=== PATIENT | male | born 1960 | race Caucasian/White ===

== ENCOUNTER 2020-06-16 16:43 | Emergency (ER) | payer BC, OTHER ==
[~2020-06-16] VITALS: Ht 177.8 cm; Wt 72.6 kg
[2020-06-16 17:12] LABS: Basophils # (auto) 0.1 10 ^3/uL (0-0.2); Eosinophils # (auto) 0 10 ^3/uL (0-0.8); Eosinophils % (auto) 0.3 % (0.0-7.0); Monocytes # (auto) 0.6 10 ^3/uL (0-1.3)
[2020-06-16 17:13] LABS: Hemoglobin 15.8 g/dL (13.5-17.5); Lymphocytes # (auto) 1.7 10 ^3/uL (0.4-5.4); Lymphocytes % (auto) 20.3 % (10.0-50.0); Mean Corpuscular Hemoglobin 36.3 pg (28.0-32.0); Mean Corpuscular Hgb Conc. 35.8 g/dL (32.0-36.0); Mean Corpuscular Volume 101.4 fL (80.0-100.0); Monocytes % (auto) 7.3 % (0.0-12.0); Neutrophils % (auto) 71.1 % (37.0-80.0); Nucleated Red Blood Cells % 0.1 %; Platelet Count (auto) 178 10^3/uL (140-450); Red Blood Cells 4.34 10^6/uL (4.5-5.90); Red Cell Distribution Width 13.7 % (11.8-14.3); White Blood Cell 8.5 10^3/uL (4.4-10.8)
[2020-06-16 17:25] LABS: Albumin 3.9 g/dL (3.4-5.0); Anion Gap 11 (5-15); Blood Urea Nitrogen 16 mg/dL (7-18); Calcium 9.4 mg/dL (8.5-10.1); Carbon Dioxide 21 mmol/L (21-32); Chloride 104 mmol/L (98-107); Glucose 114 mg/dL (74-106); Sodium 136 mmol/L (136-145)
[2020-06-16 17:26] LABS: Partial Thromboplastin Time 27.2 sec (23.0-31.2)
[2020-06-16] MEDS ORDERED: cloNIDine HCL 0.1 MG TAB PO ONE (17:30)
[2020-06-16 17:31] LABS: Alanine Aminotransferase 50 U/L (16-61); Alkaline Phosphatase 30 U/L (45-117); Aspartate Aminotransferase 44 U/L (15-37); BUN/Creatinine Ratio 16.3; Bilirubin, Total 0.8 mg/dL (0.2-1.0); GFR African American 101 mL/min; GFR Non-African American 83 mL/min; Total Protein 7.3 g/dL (6.4-8.2)
[2020-06-16 18:29] LABS: Urine WBC None Seen /hpf (0 - 3)
[2020-06-16 19:39] LABS: Alcohol, Urine < 3.0 mg/dL (0-10); Amphetamine Screen, Urine NEGATIVE (NEGATIVE); Barbiturate Scree,Urine NEGATIVE (NEGATIVE); Benzodiazephine Screen, Urine NEGATIVE (NEGATIVE); Cannabinoid Screen, Urine POSITIVE (NEGATIVE); Cocaine Screen, Urine NEGATIVE (NEGATIVE); Phencyclidine Screen, Urine NEGATIVE (NEGATIVE)
[2020-06-16 19:41] LABS: Urine Bacteria NONE SEEN /hpf (None Seen); Urine Blood Negative /uL (Negative)
[2020-06-16 19:46] LABS: Opiate Scree,Urine NEGATIVE (NEGATIVE)
[2020-06-16 22:10] VITALS: BP 206/109
== END 2020-06-16 22:15 | disposition left against medical advice (07) ==
LOC: EDBD 16:43 → ER 16:46
DX: I10 Essential (primary) hypertension (principal); G45.9 Transient cerebral ischemic attack, unspecified; E11.9 Type 2 diabetes mellitus without complications
CPT/HCPCS: 36415; 70450; 80053; 80307; 81001; 82962; 83880; 84484; 85025; 85610; 85730; 93005